=== PATIENT | female | born 1975 | race Two or more races ===

== ENCOUNTER 2022-06-15 11:36 | Emergency (ER) | payer BC, SELFPAY ==
[2022-06-15 11:39] VITALS: BP 112/75; PULSE 112; RESP 20; TEMP 37; O2SAT 99; BMI 35.6
--- NOTE | 2022-06-15 11:43 | ED.GENADULT ---
HPI - General Adult General Chief complaint: Allergic Reaction <Sancho Leblanc - Last Filed: 06/15/22 11:45> Stated complaint: allergic reaction <Sancho Leblanc - Last Filed: 06/15/22 11:45> Time Seen by Provider: 06/15/22 12:14 <Sancho Leblanc - Last Filed: 06/15/22 11:45> Source: patient <GIOVANNA Jean - Last Filed: 06/15/22 15:07> Mode of arrival: ambulatory <GIOVANNA Jean - Last Filed: 06/15/22 15:07> Limitations: no limitations <GIOVANNA Jean - Last Filed: 06/15/22 15:07> History of Present Illness HPI narrative: Patient is a 46 year old assigned female at with a history of diabetes presenting to the emergency department today with a possible allergic reaction. Patient states that she recently received a shot of sernaglutide for diabetes and weight loss and now she is having stomach pain and vomiting. Patient states that she spoke to her provider who recommended she come to the emergency department to be evaluated. Patient denies any dizziness, lightheadedness, fever, chills, blurry vision, double vision, loss of vision, chest pain, difficulty breathing, shortness of breath, back pain, night sweats, pain with urination, increased urinary frequency, increased urinary urgency, blood in her urine or stool, syncope or a near syncopal episode, recent trauma or falls, bowel incontinence, bladder incontinence, bowel retention, bladder retention, or any other complaints at this time. <GIOVANNA Jean - Last Filed: 06/15/22 15:07> Onset (ago): day(s) <GIOVANNA Jean - Last Filed: 06/15/22 15:07> Location: abdomen <GIOVANNA Jean - Last Filed: 06/15/22 15:07> Severity: mild <GIOVANNA Jean - Last Filed: 06/15/22 15:07> Severity scale (1-10): 2 <GIOVANNA Jean - Last Filed: 06/15/22 15:07> Relieving factors: none <GIOVANNA eJan - Last Filed: 06/15/22 15:07> Exacerbating factors: none <GIOVANNA Jean - Last Filed: 06/15/22 15:07> Associated symptoms: nausea/vomiting <GIOVANNA Jean - Last Filed: 06/15/22 15:07> Treatments prior to arrival: none <GIOVANNA Jean - Last Filed: 06/15/22 15:07> Related Data Allergies/adverse reactions: Allergies Allergy/AdvReac Type Severity Reaction Status Date / Time Seasonal Allergies Allergy Sneezing Verified 06/15/22 11:44 <Sancho Leblanc - Last Filed: 06/15/22 11:45> Review of Systems Constitutional: Constitutional: Reports no additional constitutional complaints, Denies chills, Denies fever(s) and Denies night sweats <GIOVANNA Jean - Last Filed: 06/15/22 15:07> Eyes: Eyes: Reports no additional eye complaints, Denies blurry vision, Denies change in vision, Denies diplopia, Denies eye discharge, Denies loss of vision and Denies eye pain <GIOVANNA Jean - Last Filed: 06/15/22 15:07> ENT: Denies dizziness <GIOVANNA Jean - Last Filed: 06/15/22 15:07> Cardiovascular: Cardiovascular: Reports no additional cardiovascular complaints, Denies chest pain, Denies lightheadedness, Denies Loss of Consciousness and Denies dyspnea <GIOVANNA Jean - Last Filed: 06/15/22 15:07> Respiratory: Respiratory: Reports no additional respiratory complaints and Denies dyspnea <GIOVANNA Jean - Last Filed: 06/15/22 15:07> Gastrointestinal: Gastrointestinal: Reports no additional gastrointestinal complaints, Reports abdominal pain, Denies melena, Denies hematochezia, Denies change in bowel habits, Denies change in stool character, Reports nausea and Reports vomiting <GIOVANNA Jean - Last Filed: 06/15/22 15:07> Genitourinary: Genitourinary: Denies hematuria, Denies urinary frequency, Denies dysuria, Denies urinary incontinence, Denies urinary hesitancy and Denies urinary urgency <GIOVANNA Jean - Last Filed: 06/15/22 15:07> Musculoskeletal: Musculoskeletal: Reports no additional musculoskeletal complaints, Denies numbness and Denies tingling <GIOVANNA Jean - Last Filed: 06/15/22 15:07> Neurologic: Denies dizziness, Denies loss of vision, Denies numbness and Denies tingling <GIOVANNA Jean - Last Filed: 06/15/22 15:07> Psychiatric: Psychiatric: Reports no additional psychiatric complaints <GIOVANNA Jean - Last Filed: 06/15/22 15:07> Endocrine: Endocrine: Reports no additional endocrine complaints <GIOVANNA Jean - Last Filed: 06/15/22 15:07> Hematologic/Lymphatic: Hematologic/Lymphatic: Reports no additional hematologic/lymphatic complaints <GIOVANNA Jean - Last Filed: 06/15/22 15:07> Allergic/Immunologic: Allergic/Immunologic: Reports no additional allergic/immunologic complaints <GIOVANNA Jean - Last Filed: 06/15/22 15:07> [facility]LY [facility] Past Medical History Attestation statement: The following information was validated with the patient. <GIOVANNA Jean - Last Filed: 06/15/22 15:07> Source: old records reviewed and nursing notes reviewed <GIOVANNA Jean - Last Filed: 06/15/22 15:07> Social History Social History: Social History Advance Directives: No Advance Directives Information Provided: Yes <Sancho Leblanc - Last Filed: 06/15/22 11:45> Physical Exam ED Vital Signs: Vital Signs - 24 hr 06/15/22 11:39 Temperature 98.6 F Pulse Rate 112 H Respiratory Rate 20 Blood Pressure 112/75 Pulse Oximetry 99 Oxygen Delivery Method Room Air BMI result Body Mass Index 35.6 <Sancho Leblanc - Last Filed: 06/15/22 11:45> Vital Signs - 24 hr 06/15/22 11:39 Temperature 98.6 F Pulse Rate 112 H Respiratory Rate 20 Blood Pressure 112/75 Pulse Oximetry 99 Oxygen Delivery Method Room Air BMI result Body Mass Index 35.6 <GIOVANNA Jean - Last Filed: 06/15/22 15:07> Const General: cooperative, no acute distress, alert and awake <GIOVANNA Jean - Last Filed: 06/15/22 15:07> Nutritional Appearance: well nourished <Mandy Tavarez NJ - Last Filed: 06/15/22 15:07> Orientation/consciousness: patient oriented x3 <Mandy Tavarez NJ - Last Filed: 06/15/22 15:07> Limitations: no limitations <Mandy Tavarez NJ - Last Filed: 06/15/22 15:07> HENMT Head: Yes normal to inspection and Yes atraumatic <Mandy Tavarez NJ - Last Filed: 06/15/22 15:07> Ears: hearing grossly normal bilaterally and external ears normal <Mandy Tavarez NJ - Last Filed: 06/15/22 15:07> General nose exam: Normal external nose present, no nasal discharge noted and no epistaxis <Mandy Tavarez NJ - Last Filed: 06/15/22 15:07> Face and sinus: Yes normal facial exam, No abrasion and No laceration <Mandy Tavarez NJ - Last Filed: 06/15/22 15:07> Mouth: Normal oral and palatal mucosa present, no drooling and no muffled voice <Mandy Tavarez NJ - Last Filed: 06/15/22 15:07> Eyes General: appearance normal, both eyes and all related structures <Mandy Tavarez NJ - Last Filed: 06/15/22 15:07> Periorbital: periorbital findings normal <Mandy Tavarez NJ - Last Filed: 06/15/22 15:07> Eyelids: Yes eyelids normal <Mandy Tavarez NJ - Last Filed: 06/15/22 15:07> Conjunctivae: conjunctivae normal <Mandy Tavarez NJ - Last Filed: 06/15/22 15:07> Pupils: Equal, round and reactive pupils present <Mandy Tavarez NJ - Last Filed: 06/15/22 15:07> EOM: EOMs intact bilaterally <Mandy Tavarez NJ - Last Filed: 06/15/22 15:07> Neck Neck: Yes normal visual inspection, Yes full ROM and Yes no lymphadenopathy <Mandy Diasugar NJ - Last Filed: 06/15/22 15:07> Chest Chest palpation & inspection: normal inspection of the chest <Mandy Tavarez PA - Last Filed: 06/15/22 15:07> Resp Effort & Inspection: normal respiratory effort and able to speak in complete sentences <Mandy Tavarez PA - Last Filed: 06/15/22 15:07> Auscultation: clear to auscultation bilaterally <Mandy Tavarez PA - Last Filed: 06/15/22 15:07> Cardio Rate: regular rate <Mandy Tavarez PA - Last Filed: 06/15/22 15:07> Rhythm: regular rhythm <Mandy Tavarez PA - Last Filed: 06/15/22 15:07> GI Inspection: Yes normal to inspection <Mandy Tavarez PA - Last Filed: 06/15/22 15:07> Palpation (GI): Soft to palpation, not firm, nontender, no guarding and not rigid <Mandy Tavarez PA - Last Filed: 06/15/22 15:07> Neuro General: patient oriented x3 and moves all extremities <Mandy Tavarez PA - Last Filed: 06/15/22 15:07> Cranial nerves: Yes Equal, round and reactive pupils present <Mandy Tavarez PA - Last Filed: 06/15/22 15:07> Cognition (Neuro): normal cognition <Mandy Tavarez PA - Last Filed: 06/15/22 15:07> Motor exam (neuro): 5/5 motor strength present throughout <Mandy Tavarez PA - Last Filed: 06/15/22 15:07> Sensory Exam: Normal double simultaneous stimulation for sensation <Mandy Tavarez PA - Last Filed: 06/15/22 15:07> Coordination: [id number] test normal <Mandy Tavarez PA - Last Filed: 06/15/22 15:07> Extrem General: Yes normal to inspection, Yes full ROM and Yes capillary refill normal <Mandy Tavarez PA - Last Filed: 06/15/22 15:07> Psych Appearance: grossly normal <Mandy Tavarez PA - Last Filed: 06/15/22 15:07> Mental Status: mental status grossly normal <Mandy Tavarez PA - Last Filed: 06/15/22 15:07> Affect: normal affect <Mandy Tavarez, PA - Last Filed: 06/15/22 15:07> Attitude: cooperative <GIOVANNA Jean - Last Filed: 06/15/22 15:07> Thought process: Normal thought process present <GIOVANNA Jean - Last Filed: 06/15/22 15:07> Thought content: Normal thought content present <GIOVANNA Jean - Last Filed: 06/15/22 15:07> Insight: Good insight present (Psych) <GIOVANNA Jean - Last Filed: 06/15/22 15:07> Course Course Course Narrative: 46-year-old female presents for evaluation of abdominal pain and shortness of breath. She reports that she got an injection of Sernaglutide yesterday afternoon. She reports she developed epigastric abdominal pain and shortness of breath since. Patient appears quite anxious. There is no evidence of anaphylaxis. No rash to her body, no edema in the oral or perioral region. No stridor on examination <Sancho Leblanc - Last Filed: 06/15/22 11:45> Medications Administered Discontinued Medications Generic Name Dose Route Start Last Admin Trade Name Freq PRN Reason Stop Dose Admin Diphenhydramine HCl 50 mg 06/15/22 12:22 06/15/22 13:28 Diphenhydramine Hcl 25 Mg Capsule PO 06/15/22 12:23 50 mg ONCE ONE Administration Famotidine 20 mg 06/15/22 12:22 06/15/22 13:28 Famotidine 20 Mg Tablet PO 06/15/22 12:23 20 mg ONCE ONE Administration <Sancho Leblanc - Last Filed: 06/15/22 11:45> Medications Administered Discontinued Medications Generic Name Dose Route Start Last Admin Trade Name Freq PRN Reason Stop Dose Admin Diphenhydramine HCl 50 mg 06/15/22 12:22 06/15/22 13:28 Diphenhydramine Hcl 25 Mg Capsule PO 06/15/22 12:23 50 mg ONCE ONE Administration Famotidine 20 mg 06/15/22 12:22 06/15/22 13:28 Famotidine 20 Mg Tablet PO 06/15/22 12:23 20 mg ONCE ONE Administration <GIOVANNA Jean - Last Filed: 06/15/22 15:07> Medical Decision Making Medical Decision Making MDM Narrative: Patient is a 46 year old assigned female at with a history of diabetes presenting to the emergency department today with nausea and vomiting after being given a shot of sernaglutide. Patient's physical exam was unremarkable. Patient's blood work showed a slightly elevated WBC count of 14.3 which is consistent with a vomiting individual. I explained my physical exam findings as well as all test results to the patient. I answered all questions asked by the patient. Patient received PO Benadryl which she stated helped her symptoms significantly. I stressed the importance of the patient taking her medication as prescribed. I stressed the importance of the patient following up with her primary care provider. I stressed the importance of the patient returning to the emergency department immediately if her symptoms were to worsen or if she were to develop any dizziness, shortness of breath, difficulty breathing, chest pain, blurry vision, loss of vision, nausea, vomiting, abdominal pain, fever, chills, back pain, or any other complaints. Patient verbalized agreement and understanding with this treatment plan and discharge. <GIOVANNA Jean - Last Filed: 06/15/22 15:07> Differential Diagnosis Differential Diagnoses: The differential diagnosis associated with the presentation includes <GIOVANNA Jean - Last Filed: 06/15/22 15:07> allergic reaction, adverse reaction to medication, nausea and vomiting <GIOVANNA Jean - Last Filed: 06/15/22 15:07> Lab Data [facility] Lab Attestation statement: I reviewed the patient's lab results. <GIOVANNA Jean - Last Filed: 06/15/22 15:07> Result Diagrams: 06/15/22 12:25 06/15/22 12:25 <Sancho Leblanc - Last Filed: 06/15/22 11:45> Labs: Lab Results 06/15/22 06/15/22 Range/Units 12:25 12:25 WBC 14.3 H (4.8-10.8) X10*3/uL RBC 4.95 (4.20-5.50) X10*6/uL Hgb 15.1 (12.0-16.0) g/dl Hct 45.1 (37.0-47.0) % MCV 91.1 (80.0-98.0) fL MCH 30.5 (27.0-33.0) pg MCHC 33.5 (31.0-35.0) g/dl RDW 13.2 (11.0-16.0) % Plt Count 291 (160-400) X10*3/uL MPV 10.0 (9.4-12.3) fL Immature Gran % (Auto) 0.4 (0.0-0.4) % Neut % (Auto) 94.0 H (45-73) % Lymph % (Auto) 2.2 L (20-40) % Cherokee % (Auto) 2.6 (2-11) % Eos % (Auto) 0.4 (0-4) % Baso % (Auto) 0.4 (0-2) % Lymph # (Auto) 0.3 L (1.2-4.9) X10*3/uL Cherokee # (Auto) 0.4 (0.1-1.2) X10*3/uL Eos # (Auto) 0.1 (0.0-0.4) X10*3/uL Baso # (Auto) 0.1 (0.0-0.2) X10*3/uL Abs Immat Gran (auto) 0.06 H (0.00-0.03) X10*3/uL Absolute Neuts (auto) 13.4 H (2.0-8.3) x10*3/uL Absolute Nucleated RBC 0.000 (0.0-0.012) X10*3/uL Nucleated RBC % (auto) 0.0 (0.0-0.2) /100WBC Smear Tech's Comments VERIFIED Sodium 140 (135-145) mmol/L Potassium 4.0 (3.3-5.1) mmol/L Chloride 107 (96-108) mmol/L Carbon Dioxide 23 (22-29) mmol/L Anion Gap 14 (12-20) BUN 20 H (9-16) mg/dL Creatinine 0.73 (0.5-1.4) mg/dL Estim Creat Clear Calc 100.5 Estimated GFR > 60 Random Glucose 130 H (60-115) mg/dL Calcium 9.2 (8.4-10.2) mg/dL Total Bilirubin 1.9 H (0.0-1.0) mg/dL AST 18 (5-31) U/L ALT 16 (0-31) U/L Alkaline Phosphatase 61 (39-117) U/L Total Protein 7.5 (6.5-8.0) g/dL Albumin 4.4 (3.5-5.0) g/dL Lipase 23 (8-78) U/L <Sancho PastranaRichardson - Last Filed: 06/15/22 11:45> Lab Results 06/15/22 06/15/22 Range/Units 12:25 12:25 WBC 14.3 H (4.8-10.8) X10*3/uL RBC 4.95 (4.20-5.50) X10*6/uL Hgb 15.1 (12.0-16.0) g/dl Hct 45.1 (37.0-47.0) % MCV 91.1 (80.0-98.0) fL MCH 30.5 (27.0-33.0) pg MCHC 33.5 (31.0-35.0) g/dl RDW 13.2 (11.0-16.0) % Plt Count 291 (160-400) X10*3/uL MPV 10.0 (9.4-12.3) fL Immature Gran % (Auto) 0.4 (0.0-0.4) % Neut % (Auto) 94.0 H (45-73) % Lymph % (Auto) 2.2 L (20-40) % Cherokee % (Auto) 2.6 (2-11) % Eos % (Auto) 0.4 (0-4) % Baso % (Auto) 0.4 (0-2) % Lymph # (Auto) 0.3 L (1.2-4.9) X10*3/uL Cherokee # (Auto) 0.4 (0.1-1.2) X10*3/uL Eos # (Auto) 0.1 (0.0-0.4) X10*3/uL Baso # (Auto) 0.1 (0.0-0.2) X10*3/uL Abs Immat Gran (auto) 0.06 H (0.00-0.03) X10*3/uL Absolute Neuts (auto) 13.4 H (2.0-8.3) x10*3/uL Absolute Nucleated RBC 0.000 (0.0-0.012) X10*3/uL Nucleated RBC % (auto) 0.0 (0.0-0.2) /100WBC Smear Tech's Comments VERIFIED Sodium 140 (135-145) mmol/L Potassium 4.0 (3.3-5.1) mmol/L Chloride 107 (96-108) mmol/L Carbon Dioxide 23 (22-29) mmol/L Anion Gap 14 (12-20) BUN 20 H (9-16) mg/dL Creatinine 0.73 (0.5-1.4) mg/dL Estim Creat Clear Calc 100.5 Estimated GFR > 60 Random Glucose 130 H (60-115) mg/dL Calcium 9.2 (8.4-10.2) mg/dL Total Bilirubin 1.9 H (0.0-1.0) mg/dL AST 18 (5-31) U/L ALT 16 (0-31) U/L Alkaline Phosphatase 61 (39-117) U/L Total Protein 7.5 (6.5-8.0) g/dL Albumin 4.4 (3.5-5.0) g/dL Lipase 23 (8-78) U/L <GIOVANNA Jean - Last Filed: 06/15/22 15:07> Discharge Plan Discharge Clinical Impression: Allergic reaction <Sancho Leblanc - Last Filed: 06/15/22 11:45> Patient Disposition: Home, Self-Care <Sancho Leblanc - Last Filed: 06/15/22 11:45> Instructions: General Allergic Reaction (ED) <Sancho Leblanc - Last Filed: 06/15/22 11:45> Additional Instructions: Follow up with your primary care provider. Return to the emergency department immediately if your symptoms worsen or if you develop any dizziness, shortness of breath, difficulty breathing, chest pain, blurry vision, loss of vision, nausea, vomiting, abdominal pain, fever, chills, back pain, or any other complaints. <Sancho Leblanc - Last Filed: 06/15/22 11:45> Referrals: [facility] [Provider Group] (Call to establish and follow up with a primary care provider. If you already have a primary care provider, please follow up with them.) [facility] [place] Primary CareJordin [Provider Group] (Call to establish and follow up with a primary care provider. If you already have a primary care provider, please follow up with them.) [facility] [place] Primary CareRolanda [Provider Group] (Call to establish and follow up with a primary care provider. If you already have a primary care provider, please follow up with them.) <Sancho Leblanc - Last Filed: 06/15/22 11:45> Stand Alone Forms: Work/School Release <Sancho Leblanc - Last Filed: 06/15/22 11:45> Interventions: ED Discharge Assessment Last Done: 06/15/22 13:33 <Sancho Leblanc - Last Filed: 06/15/22 11:45> Discharge Date/Time: 06/15/22 13:34 <Sancho Leblanc - Last Filed: 06/15/22 11:45> Print Language: Bermudian <Sancho Leblanc - Last Filed: 06/15/22 11:45>
--- OUTSIDE RECORDS SUMMARY | 2022-06-15 12:20 | XMS_ITS ---
:1975 Author Organization [facility] Address [address] [place] [address] Care Team Providers Name Role Phone BLILYKasey GERMAN Unavailable Unavailable PROBLEMS Type Condition ICD9-CM Code SGZ12-CE Code Onset Condition SNO MED Code Dates Status Problem Body mass Z68.35 Active [id number] [id number] index [BMI] 35.0-35.9, adult Problem Other obesity E66.09 Active 759571 009 due to excess calories ALLERGIES No Known Allergies ENCOUNTERS Encounter Location Date Diagnosis [address] [facility] [address], [place] [address] [facility] [address] [facility] [address], [place] obesity due to [place]IMARY CARE [place], [place] excess calories E66.09 [id number] and Body mass in dex [BMI] 35.0-35.9, adult Z68.35 IMMUNIZATIONS Vaccine Route Administration Date Status [facility] B12 INJECTION IM Intramuscular June 14, 2022 Administered SOCIAL HISTORY Qualifiers Date Never Smoker REASON FOR REFERRAL FUNCTIONAL STATUS PLAN OF CARE Activity Details Future Appointment Provider Name:GERMAN BROOKS, 2022-07-19 08:15:00 AM, [address] [facility] [address], [place], [place], [phone], VITAL SIGNS Heart Rate 79 /min 2022-06-14 Weight 195 lbs 2022-06-14 BMI 35.66 kg/m2 2022-06-14 Height 62 in 2022-06-14 Oximetry 98 % 2022-06-14 Blood pressure systolic 120 mm Hg 2022-06-14 Blood pressure diastolic 70 mm Hg 2022-06-14 MEDICATIONS Medication Instructions Dosage Frequency Start End Duration Statu s Date Date Azithromycin 250 5 Not-Alessio in MG g Montelukast 30 Active Sodium 10 MG Ibuprofen 800 MG TAKE 1 7 Not-Alessio in TABLET BY g MOUTH 3 TIMES A DAY WITH FOOD, NEEDED FOR PAIN ZyrTEC Allergy Orally Once a 1 tablet 24h May, 30 day(s) Active 10 MG day 2022 predniSONE 5 MG TAKE 1 2 Not-Taki n TABLET BY g MOUTH THREE TIMES A DAY PROCEDURES No Known procedures RESULTS No Results REASON FOR VISIT Pt is here for a wt mgt consult with SECA and MICC Injection given in left arm. Informed consent taken. Patient tolerated the procedure well and was discharged in stable condition. Insurance Providers [facility] Member Patient Patient Patient Patient Patient Subscriber Subscriber Subscriber Group Insurance Plan Plan Plan Plan ID Relationship Address Phone Name Date of ID Name Date of No Type Insurance Insurance Insurance Coverage to Subscriber Address Phone Name Dates Raffi Wise [phone] [employer] self OPAL [id number] and Blue [id number] and Blue REYNOLDS [address]
--- OUTSIDE RECORDS SUMMARY | 2022-06-15 12:20 | XMS_ITS | Continuity of Care Document ---
:1975 Author Organization [facility] Address [address] [place] [address]- Care Team Providers Name Role Phone Yelitza Elizondo MD Primary Care Physician [place] [facility] [place] [facility] [address] [place] [address] [facility] Attending Physician: Jerson Eastman Admitting Physician: AdmJerson lópez Referring Physician: Admtr ArErin Allergies, Adverse Reactions, Alerts Substance Reaction Severity Status NKA Active Medications Colace sodium 100 mg oral capsule 100 mg, 1, capsule, By Mouth, 2 times a day, # 2 capsule, Refills 0, Tot. Refills 0, Maintenance, 04/05/16 17:12:33, Print Requisition Start Date: 04/05/16 Stop Date: 04/06/16 Status: Orderedibuprofen 600 mg oral tablet 1 tablet, By Mouth, Every 6 hours, # 40 tablet, 0 Refills, Maintenance, 12/20/13 8:37:42, Tablet Start Date: 12/20/13 Status: Ordered
--- OUTSIDE RECORDS SUMMARY | 2022-06-15 12:20 | XMS_ITS | Continuity of Care Document ---
:1975 Author Organization [facility] Address [address] [place] [address]- Care Team Providers Name Role Phone Yelitza Elizondo MD Primary Care Physician Encounter [facility] [place] Date(s): 05/10/19 - 06/14/[address] [address]- [facility] Attending Physician: Yelitza Elizondo MD Admitting Physician: Yelitza Elizondo MD Referring Physician: Yelitza Elizondo MD Allergies, Adverse Reactions, Alerts Substance Reaction Severity [...]
--- OUTSIDE RECORDS SUMMARY | 2022-06-15 12:20 | XMS_ITS | Continuity of Care Document ---
:1975 Author Organization [facility] Address [address] [place] [address]- Care Team Providers Name Role Phone Yelitza Elizondo MD Primary Care Physician En[facility] [place] Date(s): 04/26/19 - 05/30/19 [facility] [address] [facility] [place] [address] [facility] Attending Physician: Katlyn Lopez NP Admitting Physician: John LUGO, Katlyn John Referring Physician: Yelitza Elizondo MD Allergies, Adverse [...]
[2022-06-15 12:39] LABS: Basophils Absolute Auto 0.1 X10*3/uL (0.0-0.2); Basophils Percent Auto 0.4 % (0-2); Eosinophils Absolute Auto 0.1 X10*3/uL (0.0-0.4); Eosinophils Percent Auto 0.4 % (0-4); Hematocrit 45.1 % (37.0-47.0); Hemoglobin 15.1 g/dl (12.0-16.0); Imm Gran Abs Auto 0.06 X10*3/uL (0.00-0.03); Imm Gran Pct Auto 0.4 % (0.0-0.4); Lymphocytes Absolute Auto 0.3 X10*3/uL (1.2-4.9); Lymphocytes Percent Auto 2.2 % (20-40); MANUAL DIFF FLAG SCAN; Mean Corpuscular HGB Conc 33.5 g/dl (31.0-35.0); Mean Corpuscular Hemoglobin 30.5 pg (27.0-33.0); Mean Corpuscular Volume 91.1 fL (80.0-98.0); Monocytes Absolute Auto 0.4 X10*3/uL (0.1-1.2); Monocytes Percent Auto 2.6 % (2-11); Neutrophils Absolute Auto 13.4 x10*3/uL (2.0-8.3); Platelet Count 291 X10*3/uL (160-400); Red Blood Count 4.95 X10*6/uL (4.20-5.50); Red Cell Distribution Width 13.2 % (11.0-16.0); SCAN SMEAR FLAG 1; White Blood Count 14.3 X10*3/uL (4.8-10.8)
[2022-06-15 13:02] LABS: Alanine Aminotransferase 16 U/L (0-31); Albumin Level 4.4 g/dL (3.5-5.0); Alkaline Phosphatase 61 U/L (39-117); Anion Gap 14 (12-20); Aspartate Amino Transferase 18 U/L (5-31); Bilirubin Total 1.9 mg/dL (0.0-1.0); Blood Urea Nitrogen 20 mg/dL (9-16); Calcium 9.2 mg/dL (8.4-10.2); Carbon Dioxide 23 mmol/L (22-29); Chloride 107 mmol/L (96-108); Creatinine Clr Calc Pharmacy 100.5; Estimated Glomerular Filt Rate > 60; Glucose Random 130 mg/dL (60-115); Lipase 23 U/L (8-78); Sodium 140 mmol/L (135-145); Total Protein 7.5 g/dL (6.5-8.0)
[2022-06-15 13:07] LABS: SLIDE REVIEW VERIFIED
[2022-06-15] MEDS: Famotidine 20 MG TABLET PO (13:28)
[2022-06-15] MEDS: diphenhydrAMINE HCL 25 MG CAPSULE 50 MG PO (13:28)
== END 2022-06-15 13:34 | disposition home or self-care (01) ==
PROVIDERS: Physician Assistant; Emergency Provider Emergency Medicine
DX: R11.2 Nausea with vomiting, unspecified (principal); T50.995A Adverse effect of other drugs, medicaments and biological substances, initial encounter; Y92.9 Unspecified place or not applicable
CPT/HCPCS: 36415; 80053; 83690; 85025; 99283